=== PATIENT | female | born 1930 ===

== ENCOUNTER → 2019-02-15 14:16 | Outpatient (CLI) | payer MEDICARE ==
[2019-02-15 14:52] LABS: APPEARANCE CLEAR (CLEAR); BILIRUBIN NEGATIVE (NEGATIVE); COLOR YELLOW (YELLOW); GLUCOSE NEGATIVE (NEGATIVE); KETONE NEGATIVE (NEGATIVE); NITRITE NEGATIVE (NEGATIVE); PROTEIN NEGATIVE (NEGATIVE); UROBILINOGEN NORMAL (NORMAL)
== END | disposition home or self-care (01) ==
LOC: D.LABREF 14:16
DX: N39.0 Urinary tract infection, site not specified (principal)